=== PATIENT | female | born 1975 | race Two or more races ===

== ENCOUNTER 2018-11-17 14:08 | Emergency (ER) | payer MEDICAID ==
[~2018-11-17] VITALS: Ht 152.4 cm; Wt 60.3 kg
[2018-11-17 16:22] VITALS: BP 140/72
== END 2018-11-17 16:23 | disposition home or self-care (01) ==
LOC: ER 14:18
DX: T78.40XA Allergy, unspecified, initial encounter (principal); X58.XXXA Exposure to other specified factors, initial encounter